=== PATIENT | male | born 1990 | race Caucasian/White ===

== ENCOUNTER 2019-07-21 10:49 | Inpatient (IN) | payer MEDICAID ==
[~2019-07-21] VITALS: Ht 167.6 cm; Wt 74.8 kg
[2019-07-21 10:49] VITALS: BP 157/96
[2019-07-21 11:31] LABS: BASOPHILS % (AUTO) 0.6 % (0.0-2.0); EOSINOPHILS # (AUTO) 0.5 K/uL (0-0.4); HEMATOCRIT 41.5 % (36-52); HEMOGLOBIN 13.8 g/dL (12.0-18.0); LYMPHOCYTES # (AUTO) 2.1 K/uL (2.0-11.5); LYMPHOCYTES % (AUTO) 26.4 % (20.5-51.1); MEAN CORPUSCULAR HEMOGLOBIN 30 pg (27-31); MEAN CORPUSCULAR HGB CONC 33 g/dL (33-37); MEAN CORPUSCULAR VOLUME 89.9 fL (80-94); MONOCYTES # (AUTO) 0.8 K/uL (0.8-1.0); MONOCYTES % (AUTO) 9.9 % (1.7-9.3); NEUTROPHILS # (AUTO) 4.6 K/uL (1.8-7.7); NEUTROPHILS % (AUTO) 57.1 % (42.2-75.2); PLATELET COUNT (AUTO) 271 K/uL (140-450); RED BLOOD CELL COUNT(AUTO) 4.61 MIL/uL (4.20-6.10); RED CELL DISTRIBUTION WIDTH 14.3 % (11.6-13.7); WHITE BLOOD COUNT (AUTO) 8.1 K/uL (4.8-10.8)
[2019-07-21 11:54] LABS: CARBON DIOXIDE 30.2 mmol/L (21-32); CREATININE 1.1 mg/dL (0.7-1.3); GFR ARICAN-AMERICAN 101 mL/min (>90); GLUCOSE 101 mg/dL (74-106); UREA NITROGEN, BLOOD 25 mg/dL (7-18)
[2019-07-21 11:55] LABS: ASPARTATE AMINOTRANSFERASE 25 U/L (15-37); TOTAL BILIRUBIN 0.6 mg/dL (0.0-1.0)
[2019-07-21 11:56] LABS: ACETAMINOPHEN < 0.5 ug/ml (10-30); ALBUMIN 3.8 g/dL (3.4-5.0); SALICYLATE < 2.8 mg/dL (2.8-20.0)
[2019-07-21 12:04] LABS: ANION GAP 13.1 (8-16); CHLORIDE 101 mmol/L (98-107); POTASSIUM 3.8 mmol/L (3.5-5.1); SODIUM SERUM 138 mmol/L (136-145)
[2019-07-21 13:38] LABS: APPEARANCE,URINE CLEAR (CLEAR); BARBITURATE, URINE NEG. ng/ml (NEG <=200); BENZODIAZEPINE, URINE NEG. ng/mL (NEG <=200); BILIRUBIN,URINE NEGATIVE (NEGATIVE); BLOOD, URINE NEGATIVE (NEGATIVE); CANNABINOID, URINE NEG. ng/mL (NEG <=50); COCAINE, URINE NEG. ng/mL (NEG <=300); COLOR,URINE YELLOW (YELLOW); LEUKOCYTE ESTERASE ,URINE NEGATIVE (NEGATIVE); NITRITE, URINE NEGATIVE (NEGATIVE); OPIATE, URINE NEG. ng/mL (NEG <=2000); PHENCYCLIDINE SCREEN,URINE NEG. ng/mL (NEG <=25); UGLUCOSE NEGATIVE (NEGATIVE)
[2019-07-21 14:00] LABS: RBC,URINE NONE SEEN /HPF (0-5); WBC,URINE NONE SEEN /HPF (0-5)
[2019-07-21 14:01] LABS: FINE GRANULAR CASTS,URINE 0-10 /LPF (None Seen)
[2019-07-21] MEDS ORDERED: diphenhydrAMINE 50 MG/ML VIAL IM ONE (16:30)
[2019-07-21] MEDS ORDERED: HALOPERIDOL IM 5 MG/ML VIAL IM ONE (16:30)
[2019-07-21] MEDS ORDERED: LORazepam 2 MG/ML VIAL IM ONE (16:30)
[2019-07-22] MEDS ORDERED: ONDANSETRON 4 MG/2 ML VIAL IVP PRN (00:50)
[2019-07-22] MEDS ORDERED: HYDROcodone/APAP 7.5/325 MG 1 TAB PO PRN (00:50)
[2019-07-22] MEDS ORDERED: ACETAMINOPHEN 325 MG TAB PO PRN (00:50)
[2019-07-22 01:28] LABS: FREE T4 (FREE THYROXINE) 1.07 ng/dL (0.76-1.46); PHOSPHORUS 4.3 mg/dL (2.5-4.9); THYROID STIMULATING HORMONE 1.3 uIU/mL (0.34-3.74)
[2019-07-22] MEDS ORDERED: LORazepam 1 MG TAB PO PRN (02:30)
[2019-07-22] MEDS ORDERED: NACL 0.9% 1,000 ML IV ONE (02:45)
[2019-07-22 07:51] LABS: BASOPHILS % (AUTO) 0.3 % (0.0-2.0); EOSINOPHILS # (AUTO) 0.5 K/uL (0-0.4); EOSINOPHILS % (AUTO) 8.5 % (0.0-4.0); HEMATOCRIT 43.4 % (36-52); HEMOGLOBIN 14.3 g/dL (12.0-18.0); LYMPHOCYTES # (AUTO) 1.3 K/uL (2.0-11.5); LYMPHOCYTES % (AUTO) 22.9 % (20.5-51.1); MEAN CORPUSCULAR HEMOGLOBIN 30 pg (27-31); MEAN CORPUSCULAR HGB CONC 33 g/dL (33-37); MEAN CORPUSCULAR VOLUME 91.3 fL (80-94); MONOCYTES # (AUTO) 0.5 K/uL (0.8-1.0); MONOCYTES % (AUTO) 8.5 % (1.7-9.3); NEUTROPHILS # (AUTO) 3.4 K/uL (1.8-7.7); NEUTROPHILS % (AUTO) 59.8 % (42.2-75.2); PLATELET COUNT (AUTO) 253 K/uL (140-450); RED BLOOD CELL COUNT(AUTO) 4.75 MIL/uL (4.20-6.10); RED CELL DISTRIBUTION WIDTH 14.4 % (11.6-13.7); WHITE BLOOD COUNT (AUTO) 5.7 K/uL (4.8-10.8)
[2019-07-22 08:00] VITALS: BP 110/63
[2019-07-22 08:14] LABS: ANION GAP 11.5 (8-16); CARBON DIOXIDE 29.6 mmol/L (21-32); POTASSIUM 4.1 mmol/L (3.5-5.1)
[2019-07-22 08:25] LABS: PROTHROMBIN TIME 9.6 secs (10.8-13.4)
[2019-07-22 08:40] LABS: CHOL/HDL RATIO 1.8 (1-4.5)
[2019-07-22] MEDS: risperiDONE 1 MG TAB PO SCH ×2 (09:00→20:38)
[2019-07-22] MEDS: DOCUSATE SODIUM 100 MG GELCAP PO SCH ×2 (09:34→20:37)
[2019-07-22 16:00] VITALS: BP 90/50
[2019-07-22 23:58] VITALS: BP 109/56
[2019-07-23 07:47] LABS: BASOPHILS % (AUTO) 0.2 % (0.0-2.0); EOSINOPHILS # (AUTO) 0.5 K/uL (0-0.4); EOSINOPHILS % (AUTO) 9.2 % (0.0-4.0); HEMATOCRIT 40.9 % (36-52); HEMOGLOBIN 13.6 g/dL (12.0-18.0); LYMPHOCYTES # (AUTO) 1.2 K/uL (2.0-11.5); MEAN CORPUSCULAR HEMOGLOBIN 30 pg (27-31); MEAN CORPUSCULAR HGB CONC 33 g/dL (33-37); MEAN CORPUSCULAR VOLUME 90.6 fL (80-94); MONOCYTES # (AUTO) 0.5 K/uL (0.8-1.0); NEUTROPHILS # (AUTO) 3.5 K/uL (1.8-7.7); NEUTROPHILS % (AUTO) 61.6 % (42.2-75.2); PLATELET COUNT (AUTO) 245 K/uL (140-450); RED BLOOD CELL COUNT(AUTO) 4.52 MIL/uL (4.20-6.10); RED CELL DISTRIBUTION WIDTH 14.6 % (11.6-13.7); WHITE BLOOD COUNT (AUTO) 5.7 K/uL (4.8-10.8)
[2019-07-23 07:56] LABS: ANION GAP 10.4 (8-16); CARBON DIOXIDE 29.9 mmol/L (21-32); CREATININE 0.8 mg/dL (0.7-1.3); POTASSIUM 4.3 mmol/L (3.5-5.1)
[2019-07-23 08:00] VITALS: BP 113/69
[2019-07-23 08:11] LABS: MAGNESIUM 1.9 mg/dL (1.8-2.4); PHOSPHORUS 3.4 mg/dL (2.5-4.9)
[2019-07-23] MEDS: risperiDONE 1 MG TAB PO SCH ×2 (10:14→21:52)
[2019-07-23] MEDS: DOCUSATE SODIUM 100 MG GELCAP PO SCH ×2 (10:14→21:52)
[2019-07-23 16:00] VITALS: BP 113/69
[2019-07-24] VITALS: BP 97/54
[2019-07-24 07:56] LABS: BASOPHILS % (AUTO) 0.4 % (0.0-2.0); EOSINOPHILS # (AUTO) 0.5 K/uL (0-0.4); EOSINOPHILS % (AUTO) 9.5 % (0.0-4.0); HEMATOCRIT 42.2 % (36-52); HEMOGLOBIN 13.9 g/dL (12.0-18.0); LYMPHOCYTES # (AUTO) 1.4 K/uL (2.0-11.5); LYMPHOCYTES % (AUTO) 28.1 % (20.5-51.1); MEAN CORPUSCULAR HEMOGLOBIN 30 pg (27-31); MEAN CORPUSCULAR HGB CONC 33 g/dL (33-37); MEAN CORPUSCULAR VOLUME 90.5 fL (80-94); MONOCYTES # (AUTO) 0.5 K/uL (0.8-1.0); MONOCYTES % (AUTO) 9.4 % (1.7-9.3); NEUTROPHILS # (AUTO) 2.7 K/uL (1.8-7.7); NEUTROPHILS % (AUTO) 52.6 % (42.2-75.2); PLATELET COUNT (AUTO) 253 K/uL (140-450); RED BLOOD CELL COUNT(AUTO) 4.67 MIL/uL (4.20-6.10); RED CELL DISTRIBUTION WIDTH 14.5 % (11.6-13.7); WHITE BLOOD COUNT (AUTO) 5.1 K/uL (4.8-10.8)
[2019-07-24 08:03] LABS: MAGNESIUM 1.8 mg/dL (1.8-2.4); PHOSPHORUS 3.2 mg/dL (2.5-4.9)
[2019-07-24 08:04] LABS: ANION GAP 8.5 (8-16); CARBON DIOXIDE 31.9 mmol/L (21-32); CREATININE 0.9 mg/dL (0.7-1.3); POTASSIUM 4.4 mmol/L (3.5-5.1)
[2019-07-24 08:31] VITALS: BP 105/65
[2019-07-24] MEDS: DOCUSATE SODIUM 100 MG GELCAP PO SCH (09:12)
[2019-07-24] MEDS: risperiDONE 1 MG TAB PO SCH (09:12)
[2019-07-24] MEDS ORDERED: RISP0.5T3 PO (15:49)
== END 2019-07-24 16:25 | disposition home or self-care (01) | DRG 812 ==
LOC: MED 10:49 → MTU 07-22 00:50
PROVIDERS: ADMIT General Practice; ATTEND General Practice
DX: T43.621A Poisoning by amphetamines, accidental (unintentional), initial encounter (principal); F22 Delusional disorders; E86.0 Dehydration; F23 Brief psychotic disorder; F15.10 Other stimulant abuse, uncomplicated; Z59.0 Homelessness; Z71.51 Drug abuse counseling and surveillance of drug abuser
CPT/HCPCS: 36415; 71045; 80048; 80053; 80305; 81001; 82550; 82553; 83036; 83735; 84100; 84439; 84443; 85025; 85610; 85730; 87081; 96372; 99285; G0480; G0482; J1200; J1630; J2060; J7030

== ENCOUNTER 2020-03-06 19:10 | Emergency (ER) | payer SELFPAY ==
[~2020-03-06 19:10] MED LIST: RISP0.5T3 PO
--- NOTE | 2020-03-06 19:19 | NUR ---
PT AMBULATED TO [facility]
--- NOTE | 2020-03-06 19:46 | NUR ---
Shelia garsia in ED - 03/06/20 at 1949 by [facility] PATIENT ELOPED FROM FACILITY. DISCHARGE INSTRUCTIONS NOT GIVEN TO PATIENT. DR. GRAY NOTIFIED.
--- NOTE | 2020-03-06 19:51 | NUR ---
NO NURSING INTERVENTIONS DONE. PT EVALUATED, TREATED AND DISCHARGED BY DR. GRAY. PT LEFT WITHOUT DISCHARGE INSTRUCTIONS.
--- NOTE | 2020-03-06 22:31 | NUR ---
PT CAME BACK TO ED. PT GIVEN DISCHARGE PAPERWORKS AND PRESCRIPTIONS. PT VERBALIZES UNDERSTANDING.
== END 2020-03-06 19:51 | disposition home or self-care (01) ==
LOC: MED 19:10
DX: S80.862A Insect bite (nonvenomous), left lower leg, initial encounter (principal); F15.90 Other stimulant use, unspecified, uncomplicated; Z79.899 Other long term (current) drug therapy; W57.XXXA Bitten or stung by nonvenomous insect and other nonvenomous arthropods, initial encounter; Y93.89 Activity, other specified; Y92.89 Other specified places as the place of occurrence of the external cause; Y99.8 Other external cause status
CPT/HCPCS: 99281